=== PATIENT | male | born 1980 | race Caucasian/White ===

== ENCOUNTER 2020-10-04 09:46 | Emergency (ER) | payer BC ==
[2020-10-04 09:59] VITALS: TEMP 97.9
--- NOTE | 2020-10-04 09:59 | ED.PDOC ---
History of Present Illness - General Chief Complaint: General Stated Complaint: right ankle and leg swelling,redness Time Seen by Provider: 10/04/20 09:54 Additional Information: 40-year-old male patient with a history of Essie thyroiditis presenting to the ER with a 2-week history of right lower extremity swelling and pain. 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 Patient is a smoker and social drinker denies any illegal drug use. Patient stated the pain is a 3 out of 10 mostly on the dorsum of the right foot but extending into the calf Pain at that he called the nurse at different hospital and she told him to come and get himself checked to rule out DVT - History of Present Illness Timing/Duration: other - 2 weeks Improving Factors: nothing Worsening Factors: nothing Associated Symptoms: other Allergies/Adverse Reactions: Allergies Penicillins Allergy (Unverified 12/30/13 17:30) Home Medications: Ambulatory Orders Acetaminophen W/ Codeine [Tylenol W/ CODEINE #3] 1 ea PO Q6HRS #20 ea 10/04/20 Clindamycin HCl 300 mg PO Q8HRS #21 cap 10/04/20 Methylprednisolone [Medrol Dose Lito] 4 mg PO DAILY 6 Days #21 tab 10/04/20 Review of Systems - Review of Systems Constitutional: States: no symptoms reported EENTM: States: no symptoms reported Respiratory: States: no symptoms reported Cardiology: States: no symptoms reported Gastrointestinal/Abdominal: States: no symptoms reported Genitourinary: States: no symptoms reported Musculoskeletal: States: joint swelling Skin: States: no symptoms reported Neurological: States: no symptoms reported Endocrine: States: no symptoms reported Hematologic/Lymphatic: States: no symptoms reported Past Medical History (General) - Patient Medical History Hx Seizures: No Hx Stroke: No Hx Dementia: No Hx Asthma: No Hx of COPD: No Hx Cardiac Disorders: No Hx Congestive Heart Failure: No Hx Pacemaker: No Hx Hypertension: No Hx Thyroid Disease: No Hx Diabetes: No Hx Gastroesophageal Reflux: No Hx Renal Disease: No Hx of HIV: No Hx MRSA: No MRSA Source:: Wound - Vaccination History Hx Influenza Vaccination: No - Social History Hx Tobacco Use: Yes Family Medical History - Family History Mother Family History: Unknown Physical Exam - Physical Exam General Appearance: Alert, Well Developed, Well Groomed, Well Hydrated, Well Nourished Eye Exam: bilateral normal Ears, Nose, Throat: hearing grossly normal, normal ENT inspection, normal pharynx Neck: non-tender, full range of motion Respiratory: chest non-tender, lungs clear, normal breath sounds, no respiratory distress, no accessory muscle use Cardiovascular/Chest: normal peripheral pulses, regular rate, rhythm, no edema, no gallop, no JVD, no murmur Peripheral Pulses: radial,right: 2+, radial,left: 2+ Gastrointestinal/Abdominal: normal bowel sounds, non tender, soft, no organomegaly, no pulsatile mass Back Exam: normal inspection, no CVA tenderness, no vertebral tenderness Extremity: no calf tenderness, normal capillary refill, pedal edema, swelling, other - bilateral swelling. warm to touch point tenderness at the dosrsum of the right foot Progress - Progress Progress: 40-year-old male patient that presents to the ER because of right lower extremity pain, patient stated that he feels like he swollen but but both of his feet and akle are equally swollen, and patient did not have any calf tenderness bilaterally. For possible DVT. So I ordered an ultrasound that did not show any evidence of blood clot, I also ordered a uric acid that was negative as well. Patient does have some redness at the dorsum of the foot, but not involving the toe, at this point I feel that this patient is suffering from a tendinitis given the presence of pain at the dorsum of the foot, but since there is also a red streak there might be a cellulitis involved so patient will be discharged home with steroids antibiotics and pain medication. Instructions given to keep the extremity elevated may use ice packs for pain, and follow-up with alumni relations coordinator soon as possible 10/04/20 11:16 Departure - Departure Clinical Impression: Cellulitis and abscess of foot, except toes, Tendinitis of right foot Disposition: Discharge to Home or Self Care Departure Forms: ED Discharge - Pt. Copy, Patient Portal Self Enrollment, Work Release Form Diet: resume usual diet Referrals: CHUCKY HOGAN MD [Primary Care Provider] - 1-2 Weeks Prescriptions: Acetaminophen W/ Codeine [Tylenol W/ CODEINE #3] 1 ea PO Q6HRS #20 ea Clindamycin HCl 300 mg PO Q8HRS #21 cap Methylprednisolone [Medrol Dose Lito] 4 mg PO DAILY 6 Days #21 tab Home Medications: Ambulatory Orders Acetaminophen W/ Codeine [Tylenol W/ CODEINE #3] 1 ea PO Q6HRS #20 ea 10/04/20 Clindamycin HCl 300 mg PO Q8HRS #21 cap 10/04/20 Methylprednisolone [Medrol Dose Lito] 4 mg PO DAILY 6 Days #21 tab 10/04/20 Additional Instructions: ep the extremity elevated may use ice packs for pain, and follow-up with alumni relations coordinator soon as possible
--- NOTE | 2020-10-04 11:18 | US ---
EXAM DESCRIPTION: Venous,Lower Extremity RT: ULTRASOUND. CLINICAL HISTORY: rule out DVT COMPARISON: None Available. TECHNIQUE: Hamilton-scale and doppler sonographic evaluation of the deep venous system of the right lower extremity. FINDINGS: Doppler evaluation shows normal color flow and normal phasicity and augmentation of the right common femoral vein, right femoral vein, popliteal vein, right greater saphenous vein, junction with the CFV. Also normal color flow and normal phasicity and augmentation of the peroneal, and posterior tibial vein. The right lower extremity deep veins were completely compressible; normal occlusion with transducer pressure. Hamilton-scale survey showed no echogenic thrombus within these veins. Circumscribed mass with hypoechoic cortex and echogenic hilum consistent with a large lymph node in the right inguinal canal. Minimal vascularity. IMPRESSION: 1. Duplex ultrasound evaluation of the right lower extremity deep venous system showing no evidence of thrombosis. 2. 3 cm lymph node with normal morphology in the right inguinal region. Electronically signed by: Yoseph Monet MD 10/04/2020 11:16 AM EMERGENCY VEHICLE TECHNICIAN
[2020-10-04 11:41] VITALS: BP 129/91; O2SAT 96
== END 2020-10-04 11:38 | disposition home or self-care (01) ==
LOC: ER 09:46
DX: L02.611 Cutaneous abscess of right foot (principal); M77.8 Other enthesopathies, not elsewhere classified; F17.200 Nicotine dependence, unspecified, uncomplicated; Z88.0 Allergy status to penicillin